=== PATIENT | female | born 1955 | race Caucasian/White ===

== ENCOUNTER 2023-09-13 13:10 | Observation (INO) | payer MEDICARE ==
[2023-09-13] MEDS ORDERED: NITROGLYCERIN OINT 1 INCH/GM PACKET TOPICAL STA (13:39)
[2023-09-13] MEDS ORDERED: ASPIRIN 81 MG PO STA (13:39)
--- NOTE | 2023-09-13 14:07 | ED ---
General Adult HPI - General Chief complaint: Neuro Symptoms/Deficit Stated complaint: Chest Pain Time Seen by Provider: 09/13/23 13:50 Source: patient, RN notes reviewed, old records reviewed Mode of arrival: ambulatory Limitations: no limitations - History of Present Illness Initial comments: This is a 69-year-old female who states she has high cholesterol but doesn't take any medications for. Patient states she woke up at 5:00 with right-sided chest pain that radiated to her arm her arm. On the right. Patient states she was also short of breath and diaphoretic and was nauseated. Patient states it continued until she arrived in the emergency department and though she still has some of the pain it seems to an been relieved a little bit. Patient states at 5 AM she took 5 baby aspirin and attentive o'clock she took an ibuprofen patient denies any recent fever chills or cough. Patient denies numbness or weakness. Patient denies headache or any abdominal pain - Related Data Allergies Allergy/AdvReac Type Severity Reaction Status Date / Time nickel Allergy Rash/Hives Verified 09/13/23 13:18 Review of Systems ROS Statement: Those systems with pertinent positive or pertinent negative responses have been documented in the HPI. ROS Other: All systems not noted in ROS Statement are negative. Past Medical History Past Medical History: No Reported History Past Surgical History: Orthopedic Surgery General Exam - General Exam Comments Initial Comments: GENERAL: Patient is well-developed and well-nourished. Patient is nontoxic and well- hydrated and is in no acute distress. ENT: Neck is soft and supple. No significant lymphadenopathy is noted. Oropharynx is clear. Moist mucous membranes. Neck has full range of motion without eliciting any pain. EYES: The sclera were anicteric and conjunctiva were pink and moist. Extraocular movements were intact and pupils were equal round and reactive to light. Eyelids were unremarkable. PULMONARY: Unlabored respirations. Good breath sounds bilaterally. No audible rales rhonchi or wheezing was noted. CARDIOVASCULAR: There is a regular rate and rhythm without any murmurs gallops or rubs. ABDOMEN: Soft and nontender with normal bowel sounds. SKIN: Skin is clear with no lesions or rashes and otherwise unremarkable. NEUROLOGIC: Patient is alert and oriented x3. Cranial nerves II through XII are grossly intact. Motor and sensory are also intact. Normal speech, volume and content. Symmetrical smile. MUSCULOSKELETAL: Normal extremities with adequate strength and full range of motion. No lower extremity swelling or edema. No calf tenderness. LYMPHATICS: No significant lymphadenopathy is noted PSYCHIATRIC: Normal psychiatric evaluation. Limitations: no limitations Course Vital Signs 09/13/23 09/13/23 13:14 14:18 Temperature 97.9 F Pulse Rate 71 67 Respiratory 16 18 Rate Blood Pressure 165/78 178/84 O2 Sat by Pulse 99 Oximetry Medical Decision Making - Medical Decision Making EKG is interpreted by myself. EKG shows a sinus rhythm at 61 bpm IN interval 267 QRS is 98 QT interval 390 QTC is 394 per patient's EKG shows no ST segment elevation or depression. Was pt. sent in by a medical professional or institution (, PA, ACCOUNTING COORDINATOR, urgent ca re, hospital, or penitentiary...) When possible be specific @ -No Did you speak to anyone other than the patient for history (EMS, parent, family, police, friend...)? What history was obtained from this source @ -No Did you review nursing and triage notes (agree or disagree)? Why? @ -I reviewed and agree with nursing and triage notes Were old charts reviewed (outside hosp., previous admission, EMS record, old EKG, old radiological studies, urgent care reports/EKG's, penitentiary records)? Report findings @ -I reviewed prior charts elaborate on this patient Differential Diagnosis (chest pain, altered mental status, abdominal pain women, abdominal pain men, vaginal bleeding, weakness, fever, dyspnea, syncope, headache, dizziness, GI bleed, back pain, seizure, CVA, palpatations, mental health, musculoskeletal)? @ -Differential Chest Pain: Stable Angina, Unstable Angina, STEMI, NSTEMI Aortic Dissection, Pneumothorax, Musculoskeletal, Esophageal Spasm GERD, Cholecystitis, Pancreatitis, Zoster, this is not meant to be an all-inclusive list. EKG interpreted by me (3pts min.). @ -As above X-rays interpreted by me (1pt min.). @ -Chest x-ray shows no acute abnormality CT interpreted by me (1pt min.). @ -None done U/S interpreted by me (1pt. min.). @ -None done What testing was considered but not performed or refused? (CT, X-rays, U/S, labs)? Why? @ -None What meds were considered but not given or refused? Why? @ -None Did you discuss the management of the patient with other professionals (professionals i.e. , PA, ACCOUNTING COORDINATOR, lab, RT, psych nurse, psychologist social, rotary drier, teacher, career services officer, case sealer)? Give summary @ -I spoke with Dr. Rodriguez he agreed to admit the patient admitted the patient wrote admitting orders Was smoking cessation discussed for >3mins.? @ -No Was critical care preformed (if so, how long)? @ -No Were there social determinants of health that impacted care today? How? (Homelessness, low income, unemployed, alcoholism, drug addiction, transportation, low edu. Level, literacy, decrease access to med. care, [facility], rehab)? @ -No Was there de-escalation of care discussed even if they declined (Discuss DNR or withdrawal of care, Hospice)? DNR status @ -No What co-morbidities impacted this encounter? (DM, HTN, Smoking, COPD, CAD, Cancer, CVA, ARF, Chemo, Hep., AIDS, mental health diagnosis, sleep apnea, morbid obesity)? @ -None Was patient admitted / discharged? Hospital course, mention meds given and route, prescriptions, significant lab abnormalities, going to OR and other pertinent info. @ -Patient's lab work came back within normal range. I discussed the options of staying with the patient she was in agreement to stay so I admitted the patient and I consult cardiology Undiagnosed new problem with uncertain prognosis? @ -No Drug Therapy requiring intensive monitoring for toxicity (Heparin, Nitro, Insulin, Cardizem)? @ -No Were any procedures done? @ -No Diagnosis/symptom? @ -Chest pain Acute, or Chronic, or Acute on Chronic? @ -Acute Uncomplicated (without systemic symptoms) or Complicated (systemic symptoms)? @ -Complicated Side effects of treatment? @ -No Exacerbation, Progression, or Severe Exacerbation? @ -No Poses a threat to life or bodily function? How? (Chest pain, [place], [place], pneumonia, PE, COPD, DKA, ARF, appy, cholecystitis, CVA, Diverticulitis, Homicidal, Suicidal, threat to staff... and all critical care pts) @ -Yes slightly to an [place] and end organ dysfunction - Lab Data Result diagrams: 09/13/23 13:41 09/13/23 13:41 Lab Results 09/13/23 09/13/23 09/13/23 Range/Units 13:41 13:41 13:41 WBC 11.5 H (3.8-10.6) k/uL RBC 4.74 (3.80-5.40) m/uL Hgb 14.4 (11.4-16.0) gm/dL Hct 43.7 (34.0-46.0) % MCV 92.3 (80.0-100.0) fL MCH 30.3 (25.0-35.0) pg MCHC 32.8 (31.0-37.0) g/dL RDW 12.8 (11.5-15.5) % Plt Count 223 (150-450) k/uL MPV 8.0 Neutrophils % 81 % Lymphocytes % 14 % Monocytes % 4 % Eosinophils % 0 % Basophils % 1 % Neutrophils # 9.3 H (1.3-7.7) k/uL Lymphocytes # 1.6 (1.0-4.8) k/uL Monocytes # 0.5 (0-1.0) k/uL Eosinophils # 0.0 (0-0.7) k/uL Basophils # 0.1 (0-0.2) k/uL PT 9.9 L (10.0-12.5) sec INR 0.9 (<1.2) APTT 24.7 (22.0-30.0) sec Sodium 140 (137-145) mmol/L Potassium 4.1 (3.5-5.1) mmol/L Chloride 106 (98-107) mmol/L Carbon Dioxide 24 (22-30) mmol/L Anion Gap 10 mmol/L BUN 14 (7-17) mg/dL Creatinine 0.93 (0.52-1.04) mg/dL Est GFR (CKD-EPI)AfAm 74 (>60 ml/min/1.73 sqM) Est GFR (CKD-EPI)NonAf 64 (>60 ml/min/1.73 sqM) Glucose 84 (74-99) mg/dL Calcium 9.9 (8.4-10.2) mg/dL Magnesium 2.2 (1.6-2.3) mg/dL Total Bilirubin 0.6 (0.2-1.3) mg/dL AST 28 (14-36) U/L ALT 19 (4-34) U/L Alkaline Phosphatase 74 (38-126) U/L Troponin I (0.000-0.034) ng/mL Total Protein 7.5 (6.3-8.2) g/dL Albumin 4.4 (3.5-5.0) g/dL 09/13/23 Range/Units 13:41 WBC (3.8-10.6) k/uL RBC (3.80-5.40) m/uL Hgb (11.4-16.0) gm/dL Hct (34.0-46.0) % MCV (80.0-100.0) fL MCH (25.0-35.0) pg MCHC (31.0-37.0) g/dL RDW (11.5-15.5) % Plt Count (150-450) k/uL MPV Neutrophils % % Lymphocytes % % Monocytes % % Eosinophils % % Basophils % % Neutrophils # (1.3-7.7) k/uL Lymphocytes # (1.0-4.8) k/uL Monocytes # (0-1.0) k/uL Eosinophils # (0-0.7) k/uL Basophils # (0-0.2) k/uL PT (10.0-12.5) sec INR (<1.2) APTT (22.0-30.0) sec Sodium (137-145) mmol/L Potassium (3.5-5.1) mmol/L Chloride (98-107) mmol/L Carbon Dioxide (22-30) mmol/L Anion Gap mmol/L BUN (7-17) mg/dL Creatinine (0.52-1.04) mg/dL Est GFR (CKD-EPI)AfAm (>60 ml/min/1.73 sqM) Est GFR (CKD-EPI)NonAf (>60 ml/min/1.73 sqM) Glucose (74-99) mg/dL Calcium (8.4-10.2) mg/dL Magnesium (1.6-2.3) mg/dL Total Bilirubin (0.2-1.3) mg/dL AST (14-36) U/L ALT (4-34) U/L Alkaline Phosphatase (38-126) U/L Troponin I <0.012 (0.000-0.034) ng/mL Total Protein (6.3-8.2) g/dL Albumin (3.5-5.0) g/dL Disposition Clinical Impression: Chest pain Disposition: ADMITTED IP TO THIS HOSP Referrals: None,Stated [REFERRING] - 1-2 days Time of Disposition: 15:23
[2023-09-13 14:09] LABS: Basophils # (A) 0.1 k/uL (0-0.2); Basophils % (A) 1 %; Eosinophils % (A) 0 %; HCT 43.7 % (34.0-46.0); HGB 14.4 gm/dL (11.4-16.0); Lymphocytes # (A) 1.6 k/uL (1.0-4.8); Lymphocytes % (A) 14 %; MCH 30.3 pg (25.0-35.0); MCHC 32.8 g/dL (31.0-37.0); MCV 92.3 fL (80.0-100.0); Monocytes # (A) 0.5 k/uL (0-1.0); Monocytes % (A) 4 %; Neutrophils # (A) 9.3 k/uL (1.3-7.7); Neutrophils % (A) 81 %; Platelet Count 223 k/uL (150-450); RBC 4.74 m/uL (3.80-5.40); RDW 12.8 % (11.5-15.5); WBC 11.5 k/uL (3.8-10.6)
[2023-09-13 14:18] LABS: ALT 19 U/L (4-34); AST 28 U/L (14-36); African American GFR (CKD) 74 (>60 ml/min/1.73 sqM); Albumin 4.4 g/dL (3.5-5.0); Alkaline Phosphatase 74 U/L (38-126); Anion Gap 10 mmol/L; Blood Urea Nitrogen 14 mg/dL (7-17); Calcium 9.9 mg/dL (8.4-10.2); Carbon Dioxide 24 mmol/L (22-30); Chloride 106 mmol/L (98-107); Glucose 84 mg/dL (74-99); Magnesium 2.2 mg/dL (1.6-2.3); Non-African American GFR(CKD) 64 (>60 ml/min/1.73 sqM); Potassium 4.1 mmol/L (3.5-5.1); Sodium 140 mmol/L (137-145); Total Bilirubin 0.6 mg/dL (0.2-1.3); Total Protein 7.5 g/dL (6.3-8.2)
[2023-09-13 14:24] LABS: INR 0.9 (<1.2); Partial Thromboplastin Time 24.7 sec (22.0-30.0); Prothrombin Time 9.9 sec (10.0-12.5)
--- NOTE | 2023-09-13 15:03 | XR ---
EXAMINATION TYPE: XR chest 2V DATE OF EXAM: 09/13/2023 2:32 PM CLINICAL INDICATION:Female, 67 years old with history of Chest Pain; COMPARISON: None TECHNIQUE: XR chest 2V Frontal and lateral views of the chest. FINDINGS: Lungs/Pleura: There is flattening of the diaphragm with increased lucency of the lungs. No evidence o f pneumothorax, pleural effusion or focal consolidation. Pulmonary vascularity: Unremarkable. Heart/mediastinum: Cardiomediastinal silhouette is unremarkable. Musculoskeletal: No acute osseous pathology. IMPRESSION: 1. No acute cardiopulmonary disease process. 2. COPD changes.
[2023-09-13] MEDS ORDERED: NITROGLYCERIN SL TABS 0.4 MG TAB SUBLINGUAL PRN (15:23)
[2023-09-13] MEDS: NITROGLYCERIN OINT 1 INCH/GM PACKET TOPICAL SCH ×2 (18:30→23:14)
--- NOTE | 2023-09-13 21:05 | P.HPIM ---
History of Present Illness H&P Date: 09/13/23 Chief Complaint: Chest pain Patient is a 67-year-old female with a past medical history of hyperlipidemia not taking any medications presents to ER with complaints of presents to ER with complaints of right upper chest pain radiating down the right upper extremity started around 5 AM this morning. She felt her right hand being cold patient had to use her electric warm blanket. She felt very diaphoretic and sweaty after that. Se[place]our cramps in the right shoulder for about 30 minutes. She did take a hot shower but symptoms did not improve. She did take aspirin 81 mg x 5 tablets and went to work at around 10 AM. She started having symptoms again which made her come to ER. Otherwise denies any episodes of vomiting. No complaints of headache or dizziness. No fever no chills. No cough or sputum production. Denies any recent illnesses. Patient does use marijuana daily in the night. 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 She usually have cramps in her lower extremities she tries to drink enough water to get hydrated and also takes tonic water. Chest x-ray showed no acute cardiopulmonary process/COPD changes. EKG showed sinus rhythm. Laboratory data showed WBC 11.5 hemoglobin 14.4 and platelets 223 Sodium 140 potassium 4.1 chloride 106 bicarb is 24 BUN 14 and creatinine 0.93 and blood sugar 74 Troponin x 3 negative. Liver enzymes are not elevated. Review of Systems Constitutional: Patient denies any fever or chills . no Generalized weakness. Abdomen: Patient denied any nausea or vomiting or abd. pain Cardiovascular: Patient complains of right shoulder pain, chest pain. No short of breath no palpitations. No leg swelling. Respiratory: patient denied any cough . no sputum production. No shortness of breath Neurologic: Patient denied any numbness or tingling or headache. Musculoskeletal: Patient denies any complaints of joint swelling or deformity. Skin: Negative Psychiatric: Negative Endocrine: No heat or cold intolerance. No recent weight gain. Genitourinary: No dysuria or hematuria. All other 14 point ROS negative except the above Past Medical History Past Medical History: No Reported History Past Surgical History: Orthopedic Surgery Medications and Allergies Home Medications Medication Instructions Recorded Confirmed Type Aspirin EC [Ecotrin Low Dose] 81 - 486 mg PO DAILY PRN 09/13/23 09/13/23 History Ibuprofen [Motrin] 600 mg PO Q8HR PRN 09/13/23 09/13/23 History Allergies Allergy/AdvReac Type Severity Reaction Status Date / Time nickel Allergy Rash/Hives Verified 09/13/23 15:45 Physical Exam Vitals: Vital Signs Temp Pulse Resp BP Pulse Ox 09/13/23 18:35 97.9 F 65 18 143/83 98 09/13/23 16:00 60 18 166/93 97 09/13/23 14:18 67 18 178/84 09/13/23 13:14 97.9 F 71 16 165/78 99 Intake and Output 09/13/23 09/13/23 09/13/23 06:59 14:59 22:59 Other: Weight 56.699 kg PHYSICAL EXAMINATION: Patient is lying in the bed comfortably, no acute distress, awake alert and oriented.. HEENT: Normocephalic. Neck is supple. Pupils reactive. Nostrils clear. Oral cavity is moist. Neck reveals no JVD, carotid bruits, or thyromegaly. CHEST EXAMINATION: Trachea is central. Symmetrical expansion. Lung gonzales clear to auscultation and percussion. CARDIAC: Normal S1, S2 with no gallops. No murmurs ABDOMEN: Soft. Bowel sounds present. Nontender. No organomegaly. No abdominal bruits. Extremities: reveal no edema. No clubbing or cyanosis Neurologically awake, alert, oriented x3 with well-coordinated movements. No focal deficits noted Skin: No rash or skin lesions. Psychiatric: Coperative. Nonsuicidal, Musculoskeletal: No joint swelling or deformity. Normal range of motion. Results CBC & Chem 7: 09/13/23 13:41 09/13/23 13:41 Labs: Abnormal Lab Results - Last 24 Hours (Table) 09/13/23 09/13/23 Range/Units 13:41 13:41 WBC 11.5 H (3.8-10.6) k/uL Neutrophils # 9.3 H (1.3-7.7) k/uL PT 9.9 L (10.0-12.5) sec Thrombosis Risk Factor Assmnt - DVT/VTE Prophylaxis DVT/VTE Prophylaxis: Pharmacologic Prophylaxis ordered Assessment and Plan Assessment: Atypical chest pain. Likely musculoskeletal. Rule out ACS. History of hyperlipidemia not on any medications currently Elevated blood pressure Daily marijuana use DVT and GI prophylaxis Plan: Patient will be continued on telemonitoring. Serial troponin levels. Patient will be started on IV hydration with normal saline. Lipid panel was ordered. Cardiology consult for further evaluation. Continue GI and DVT prophylaxis and follow-up blood pressure. Time with Patient: Greater than 30
[2023-09-13] MEDS: HEPARIN SODIUM,PORCINE 5,000 UNIT/ML 1 ML VIAL SQ SCH (21:22)
[2023-09-13] MEDS: FAMOTIDINE 20 MG TAB PO SCH (21:22)
[2023-09-13] MEDS: SODIUM CHLORIDE 0.9% 1,000 ML IV SCH (21:22)
[2023-09-14] MEDS: NITROGLYCERIN OINT 1 INCH/GM PACKET TOPICAL SCH ×3 (05:07→16:10)
[2023-09-14] MEDS ORDERED: ASPIRIN 325 MG TAB PO SCH (09:00)
[2023-09-14 09:15] VITALS: RESP 16; TEMP 98
[2023-09-14 09:23] LABS: Appearance,Urine Clear (Clear); Bilirubin,Urine Negative (Negative); Blood,Urine Negative (Negative); Color,Urine Colorless; Glucose,Urine (UA) Negative (Negative); Ketones,Urine Negative (Negative); Leukocyte Esterase,Urine Negative (Negative); Nitrite,Urine Negative (Negative); PH, Urine 6.5 (5.0-8.0); Protein,Urine Negative (Negative); Specific Gravity,Urine 1.011 (1.001-1.035); Urobilinogen,Urine <2.0 mg/dL (<2.0)
[2023-09-14] MEDS: FAMOTIDINE 20 MG TAB PO SCH (09:26)
[2023-09-14] MEDS: HEPARIN SODIUM,PORCINE 5,000 UNIT/ML 1 ML VIAL SQ SCH (09:27)
[2023-09-14] MEDS: SODIUM CHLORIDE 0.9% 1,000 ML IV SCH (09:28)
[2023-09-14] MEDS ORDERED: LOSARTAN 25 MG TAB PO SCH (10:00)
[2023-09-14 10:35] LABS: Basophils # (A) 0.08 X 10*3/uL (0.00-0.10); Basophils % (A) 0.9 %; Eosinophils # (A) 0.18 X 10*3/uL (0.04-0.35); Lymphocytes # (A) 1.93 X 10*3/uL (0.90-5.00); MCH 29.9 pg (27.0-32.0); MCHC 31.8 g/dL (32.0-37.0); MCV 93.8 FL (80.0-97.0); Mean Platelet Volume 11.2 FL (9.5-12.2); Monocytes # (A) 0.92 X 10*3/uL (0.20-1.00); NRBC Per 100 WBC 0 X 10*3/uL (0.00-0.01); Neutrophils # (A) 6.03 X 10*3/uL (1.80-7.70); Neutrophils % (A) 65.7 %; Platelet Count 207 X 10*3/uL (140-440); RBC 4.69 X 10*6/uL (4.10-5.20); RDW 13.2 % (11.5-14.5); WBC 9.18 X 10*3/uL (4.50-10.00)
[2023-09-14 12:13] LABS: Chol/HDL Ratio 3.28 Ratio; Creatine Kinase 75 U/L (26-186); LDL Cholesterol,Calculated 128.3 mg/dL (0.0-131.0)
--- NOTE | 2023-09-14 15:20 | P.CRDCN ---
History of Present Illness Consult date: 09/14/23 History of present illness: HISTORY OF PRESENTING ILLNESS 67-year-old female with PMH of hyperlipidemia not taking any medications presented to the ER because of substernal chest pressure and right-sided chest pain. Patient reports that she woke up the morning with right upper extremity and right-sided chest heaviness like sensation. Patient reported that she is physically active at her job and has not expressed any chest pain chest pressure. On admission she was noticed to be hypertensive with a few blood pressure readings around 166/73, heart rate 62 beats a minute. ECG shows normal sinus rhythm with no significant ST-T wave changes that are diagnostic for ischemia Troponin 3 were negative, hemoglobin was normal, LDL 128, HDL 65 Patient denies any smoking or heavy alcohol use. She reports marijuana use REVIEW OF SYSTEMS 14 point review of system is negative except what is mentioned above in HPI. PHYSICAL EXAMINATION Vital signs reviewed. Head: Normocephalic. Eyes: Sclerae nonicteric. Neck: Brisk carotid upstroke, no jugular venous distention. Lungs: Clear to auscultation. Heart: Regular rate and rhythm, S1-S2, no S3, no murmur or rub. Abdomen: Soft nontender, positive bowel sounds no organomegaly. Extremities: No edema, intact distal pulses. Neuro: Alert, oritented, no focal deficits ASSESSMENT Atypical chest pain Right arm pain and right chest pain, less likely cardiac. Rule out of acute coronary syndrome with negative ECG and troponin. Symptom-free at this time Elevated blood pressure, Dyslipidemia Generalized anxiety PLAN At this time patient is stable to be discharged from cardiac vessel standpoint. I will start him on losartan 25 mg and Lipitor 40 mg to go home with. She will need an outpatient echocardiogram and a treadmill echo stress test. I will set this up. I have instructed patient to monitor her diet. She reports that she is using a lot of junk for lately. I have instructed patient to stop using marijuana. I have instructed patient to get a blood pressure machine and monitor blood pressure at home and maintain a log. If blood pressure is running low, stop losartan. I have given her the range of her blood pressures to monitor, stop losartan if SBP less than 110 Past Medical History Past Medical History: No Reported History History of Any Multi-Drug Resistant Organisms: None Reported Past Surgical History: Orthopedic Surgery Smoking Status: Never smoker Medications and Allergies Home Medications Medication Instructions Recorded Confirmed Type Aspirin EC [Ecotrin Low Dose] 81 - 486 mg PO DAILY PRN 09/13/23 09/13/23 History Atorvastatin [Lipitor] 40 mg PO HS #30 tab 09/14/23 Rx Losartan [Cozaar] 25 mg PO DAILY #30 tab 09/14/23 Rx Allergies Allergy/AdvReac Type Severity Reaction Status Date / Time nickel Allergy Rash/Hives Verified 09/13/23 15:45 Physical Exam Vitals: Vital Signs Temp Pulse Pulse Resp BP BP BP 09/14/23 07:00 98.0 F 62 16 143/83 166/73 09/14/23 02:00 97.9 F 71 18 138/69 09/13/23 20:00 97.6 F 67 18 143/73 09/13/23 18:35 97.9 F 65 18 143/83 09/13/23 16:00 60 18 166/93 Pulse Ox 09/14/23 07:00 98 09/14/23 02:00 98 09/13/23 20:00 96 09/13/23 18:35 98 09/13/23 16:00 97 Intake and Output 09/14/23 09/14/23 09/14/23 06:59 14:59 22:59 Other: # Voids 2 2 Results 09/14/23 05:32 09/13/23 13:41 Cardiac Enzymes 09/13/23 09/13/23 Range/Units 16:21 19:17 Troponin I <0.012 <0.012 (0.000-0.034) ng/mL Lipids 09/14/23 Range/Units 05:32 Triglycerides 102.00 (0.00-149.00) mg/dL Cholesterol 214.00 H (0.00-200.00) mg/dL HDL Cholesterol 65.30 H (40.00-60.00) mg/dL Cholesterol/HDL Ratio 3.28 Ratio CBC 09/14/23 Range/Units 05:32 WBC 9.18 (4.50-10.00) X 10*3/uL RBC 4.69 (4.10-5.20) X 10*6/uL Hgb 14.0 (12.0-15.0) g/dL Hct 44.0 (37.2-46.3) % Plt Count 207 (140-440) X 10*3/uL Current Medications Generic Name Dose Route Start Last Admin Trade Name Freq PRN Reason Stop Dose Admin Aspirin 325 mg 09/14/23 09:00 09/14/23 09:26 Aspirin 325 Mg Tab PO 325 mg DAILY BAY Administration Atorvastatin Calcium 40 mg 09/14/23 21:00 Atorvastatin 40 Mg Tab PO HS BAY Famotidine 20 mg 09/13/23 21:00 09/14/23 09:26 Famotidine 20 Mg Tab PO 20 mg BID BAY Administration Heparin Sodium (Porcine) 5,000 unit 09/13/23 21:00 09/14/23 09:27 Heparin Sodium,Porcine 5,000 Unit/Ml 1 Ml Vial SQ 5,000 unit Q12HR [facility] Administration Losartan Potassium 25 mg 09/14/23 10:00 09/14/23 11:04 Losartan 25 Mg Tab PO 25 mg DAILY BAY Administration Nitroglycerin 0.4 mg 09/13/23 15:23 Nitroglycerin Sl Tabs 0.4 Mg Tab SUBLINGUAL Q5M PRN Chest Pain Nitroglycerin 1 inch 09/13/23 18:00 09/14/23 11:02 Nitroglycerin Oint 1 Inch/Gm Packet TOPICAL Not Given Q6HR [facility] Intake and Output 09/14/23 09/14/23 09/14/23 06:59 14:59 22:59 Other: # Voids 2 2 09/14/23 05:32 09/13/23 13:41
[2023-09-14 16:15] VITALS: BP 149/67; PULSE 70
[2023-09-14] MEDS ORDERED: ATORVASTATIN 40 MG TAB PO SCH (21:00)
== END 2023-09-14 17:35 | disposition home or self-care (01) ==
LOC: EC 13:10 → 6NMEDSUR 15:23
PROVIDERS: ADMIT Internal Medicine; ATTEND Internal Medicine
DX: R07.89 Other chest pain (principal); M79.601 Pain in right arm; R03.0 Elevated blood-pressure reading, without diagnosis of hypertension; E78.00 Pure hypercholesterolemia, unspecified; F41.1 Generalized anxiety disorder; F12.90 Cannabis use, unspecified, uncomplicated; Z79.82 Long term (current) use of aspirin; Z79.899 Other long term (current) drug therapy
CPT/HCPCS: 96360; 96361; 96372 ×2; 99285; 36415; 93005; 80061; 80053; 82550; 83735; 84484; 85025 ×2; 85610; 85730; 81003; 71046; G0378 ×2; J1644 ×2